=== PATIENT | female | born 1965 | race Caucasian/White ===

== ENCOUNTER 2016-03-26 04:31 | Emergency (ER) | payer MEDICAID, MEDICARE ==
[2016-03-26] MEDS ORDERED: PREDNISONE 20 MG TABLET PO ONE (07:24)
[2016-03-26] MEDS ORDERED: IPRATROPIUM/ALBUTEROL 0.5-2.5 MG/3 ML AMPUL NEB ONE (07:24)
[2016-03-26] MEDS ORDERED: OXYCODONE-ACETAMINOPHEN 5-325 MG TABLET PO ONE (07:25)
[2016-03-26] MEDS ORDERED: ONDANSETRON 4 MG TAB.RAPDIS PO ONE (07:31)
--- NOTE | 2016-03-26 07:51 | ER Document Report ---
ED Cardiac - General Chief Complaint: Chest Pain Stated Complaint: CHEST PAIN Mode of Arrival: Ambulatory Information source: Patient Notes: Patient states that she developed right-sided chest pain yesterday around 8 PM. Patient states pain would radiate through to her back. Patient denies any nausea, vomiting, fever. Patient does report increased pain with deep breathing and movement. Patient does report some cold symptoms with some sinus congestion. Patient saw her newspaper photojournalist yesterday who put her on an antibiotic to treat for possible bronchitis. Patient does complain of some mild shortness of breath. Denies any recent immobilization, bedrest or recent travel. Patient denies any leg pain, swelling, or history of DVT or PE. TRAVEL OUTSIDE OF THE [place] IN LAST 30 DAYS: No - HPI Patient complains to provider of: Chest pain, Shortness of breath Was the onset of pain: Sudden Is the pain a: New problem Chest pain location: Under breast Quality of pain: Constant, Radiating Pain level currently: 4 Chest pain precipitating factors: At Rest Cardiac risk factors: Hypertension. denies: Smoker, Hx [place] Associated symptoms: Back pain, Shortness of breath. denies: Lightheaded, Nausea/vomiting, Syncope Exacerbated by: Coughing, Deep breaths, Torso movement Relieved by: Nothing Similar symptoms previously: No Recently seen / treated by doctor: No - Related Data Allergies/Adverse Reactions: aspirin [Aspirin] Allergy (Verified 09/28/15 15:54) GI upset codeine [Codeine] Allergy (Verified 09/28/15 15:54) Hallucinations ibuprofen Allergy (Verified 09/28/15 15:54) GI upset Past Medical History - General Information source: Patient - Social History Smoking Status: Never Smoker Chew tobacco use (# tins/day): No Frequency of alcohol use: None Drug Abuse: None Occupation: none Family History: Reviewed & Not Pertinent Patient has suicidal ideation: No Patient has homicidal ideation: No - Past Medical History Cardiac Medical History: Reports: Hx Hypertension Denies: Hx Coronary Artery Disease, Hx DVT, Hx Heart Attack, Hx Pulmonary Embolism Pulmonary Medical History: Reports: Hx Asthma, Hx COPD Denies: Hx Bronchitis, Hx Pneumonia, Hx Tuberculosis Neurological Medical History: Denies: Hx Cerebrovascular Accident, Hx Seizures Endocrine Medical History: Reports: Hx Hyperthyroidism - New diagnosis and is on methimazole 10mg daily Malignancy Medical History: Reports: Hx Skin Cancer Musculoskeltal Medical History: Reports Hx Arthritis Surgical Hx: Negative Past Surgical History: Denies: Hx Hysterectomy - Immunizations Hx Diphtheria, Pertussis, Tetanus Vaccination: Yes - as a child Hx Pneumococcal Vaccination: 01/04/13 Review of Systems - Review of Systems Constitutional: Recent illness - Cold symptoms, congestion. denies: Fever EENT: Nose congestion Cardiovascular: Chest pain. denies: Palpitations Respiratory: Cough, Short of breath Gastrointestinal: No symptoms reported. denies: Abdominal pain, Nausea, Vomiting Genitourinary: No symptoms reported Female Genitourinary: No symptoms reported Musculoskeletal: Back pain - Pain radiates from chest through to her back Skin: No symptoms reported Hematologic/Lymphatic: No symptoms reported Neurological/Psychological: No symptoms reported. denies: Anxiety Physical Exam - Vital signs Vitals: Temp Pulse Resp BP Pulse Ox 98.2 F 92 20 163/89 H 98 03/26/16 04:42 03/26/16 04:42 03/26/16 04:42 03/26/16 04:42 03/26/16 04:42 - General General appearance: Appears well, Alert In distress: Mild - HEENT Head: Normocephalic, Atraumatic Eyes: Normal Conjunctiva: Normal Nasal: Normal Mouth/Lips: Normal Mucous membranes: Normal Pharynx: Normal. No: Erythema Neck: Normal, Supple. No: Lymphadenopathy - Respiratory Respiratory status: No respiratory distress Chest status: Pain with cough, Pain with deep breathing Breath sounds: Nonproductive cough, Wheezing Chest palpation: Normal - Cardiovascular Rhythm: Regular Heart sounds: S1 appreciated, S2 appreciated Murmur: No - Abdominal Inspection: Obese Distension: No distension Bowel sounds: Normal Tenderness: Nontender Organomegaly: No organomegaly - Back Back: Normal, Nontender. No: CVA tenderness - Extremities General upper extremity: Normal inspection, Normal strength General lower extremity: Normal inspection, Normal strength - Neurological Neuro grossly intact: Yes Orientation: AAOx4 Jorge Coma Scale Eye Opening: Spontaneous [place] Coma Scale Verbal: Oriented Jorge Coma Scale Motor: Obeys Commands Jorge Coma Scale Total: 15 - Psychological Associated symptoms: Normal affect, Normal mood - Skin Skin Temperature: Warm Skin Moisture: Dry Skin Color: Normal Course - Re-evaluation Re-evalutation: 03/26/16 09:45 Patient currently resting. Patient denies any chest pain until she takes a deep breath in and then reports pain is only minimal. 01/05/17 12:[address] Brewster, who recommends consultation with hospitalist. 03/26/16 12:[address] Barajas, recommends road testing to see if pt is hypoxic or tachycardic with ambulation. If patient is he will gladly admit patient; if not , recommends patient be discharged home on xarelto. Dr Barajas advised of patient's vital signs. Does not feel that patient meets inpatient criteria for admission at this time. 03/26/16 13:33 Patients pulmonary embolism severity index score is 63 placing her in the low risk category for outpatient treatment. Consulted with Dr Brewster who agrees with plan for discharge given patient's low risk stratification. - Vital Signs Vital signs: Temp Pulse Resp BP Pulse Ox 98.7 F 87 20 152/85 H 98 03/26/16 14:03 03/26/16 14:03 03/26/16 14:03 03/26/16 14:03 03/26/16 14:03 - Laboratory Result Diagrams: 03/26/16 07:55 03/26/16 07:55 Laboratory results interpreted by me: 03/26/16 03/26/16 03/26/16 07:55 07:55 07:55 Hgb 11.4 L Hct 34.7 L MCV 75 L MCH 24.9 L RDW 16.6 H D-Dimer Alkaline Phosphatase 151 H Ur Leukocyte Esterase TRACE H 03/26/16 07:55 Hgb Hct MCV MCH RDW D-Dimer 0.72 H Alkaline Phosphatase Ur Leukocyte Esterase Labs- Entire Visit 03/26/16 03/26/16 03/26/16 07:55 07:55 07:55 WBC 10.4 RBC 4.60 Hgb 11.4 L Hct 34.7 L MCV 75 L MCH 24.9 L MCHC 33.0 RDW 16.6 H Plt Count 419 Seg Neutrophils % 69.0 Lymphocytes % 19.7 Monocytes % 7.9 Eosinophils % 2.3 Basophils % 1.1 Absolute Neutrophils 7.2 Absolute Lymphocytes 2.0 Absolute Monocytes 0.8 Absolute Eosinophils 0.2 Absolute Basophils 0.1 D-Dimer Sodium 141.2 Potassium 4.9 Chloride 103 Carbon Dioxide 27 Anion Gap 11 BUN 16 Creatinine 0.96 Est GFR ( Amer) > 60 Est GFR (Non-Af Amer) > 60 Glucose 99 Calcium 9.7 Magnesium 2.2 Total Bilirubin 0.4 Direct Bilirubin 0.0 AST 19 ALT 32 Alkaline Phosphatase 151 H Creatine Kinase 66 CK-MB (CK-2) 0.47 Troponin I < 0.012 Total Protein 7.2 Albumin 4.2 Lipase 128.1 Urine Color Urine Appearance Urine pH Ur Specific [place] Urine Protein Urine Glucose (UA) Urine Ketones Urine Blood Urine Nitrite Urine Bilirubin Urine Urobilinogen Ur Leukocyte Esterase Urine WBC (Auto) Urine RBC (Auto) Squamous Epi Cells Auto Urine Mucus (Auto) Urine Ascorbic Acid 03/26/16 03/26/16 03/26/16 07:55 07:55 12:30 WBC RBC Hgb Hct MCV MCH MCHC RDW Plt Count Seg Neutrophils % Lymphocytes % Monocytes % Eosinophils % Basophils % Absolute Neutrophils Absolute Lymphocytes Absolute Monocytes Absolute Eosinophils Absolute Basophils D-Dimer 0.72 H Sodium Potassium Chloride Carbon Dioxide Anion Gap BUN Creatinine Est GFR ( Amer) Est GFR (Non-Af Amer) Glucose Calcium Magnesium Total Bilirubin Direct Bilirubin AST ALT Alkaline Phosphatase Creatine Kinase CK-MB (CK-2) Troponin I < 0.012 Total Protein Albumin Lipase Urine Color YELLOW Urine Appearance SLIGHTLY-CLOUDY Urine pH 5.0 Ur Specific [place] 1.012 Urine Protein NEGATIVE Urine Glucose (UA) NEGATIVE Urine Ketones NEGATIVE Urine Blood NEGATIVE Urine Nitrite NEGATIVE Urine Bilirubin NEGATIVE Urine Urobilinogen NEGATIVE Ur Leukocyte Esterase TRACE H Urine WBC (Auto) 3 Urine RBC (Auto) 1 Squamous Epi Cells Auto 9 Urine Mucus (Auto) RARE Urine Ascorbic Acid NEGATIVE 03/26/16 18:56 - Diagnostic Test Radiology reviewed: Reports reviewed - EKG Interpretation by Me EKG shows normal: Sinus rhythm Rate: Normal Rhythm: NSR Discharge - Discharge Clinical Impression: Pulmonary embolism and infarction Chest pain Qualifiers: Chest pain type: unspecified Qualified Code(s): R07.9 - Chest pain, unspecified COPD (chronic obstructive pulmonary disease) Qualifiers: COPD type: unspecified COPD Qualified Code(s): J44.9 - Chronic obstructive pulmonary disease, unspecified Condition: Stable Disposition: HOME, SELF-CARE Instructions: Acetaminophen, Dyspnea, Nonspecific ([facility]), Chronic Obstructive Lung Disease ([facility]) Additional Instructions: Return immediately for any new or worsening symptoms Followup with your primary care provider, call tomorrow to make a followup appointment Your CAT scan showed that you had a pulmonary embolism. You'll need to be started on a blood thinning medication. Return immediately for any new or worsening symptoms, abnormal bleeding, bruising, severe headache, head injury, worsening chest pain, worsening shortness of breath, or any concerning symptoms. Your primary doctor will determine how long you need to continue on blood thinning medications. Call them tomorrow to make a follow-up appointment. Take Tylenol [id number] as directed to help with pain Prescriptions: Albuterol Sulfate [Ventolin Hfa] 2 puff IH Q4HP PRN #17 gm PRN Reason: Prednisone [Deltasone 20 mg Tablet] 3 tab PO DAILY 4 Days Rivaroxaban [Xarelto 15 mg Tablet] 15 mg PO BID #42 tablet Referrals: ALIDA MARCUS MD [Primary Care Provider] - Follow up in 3-5 days
--- NOTE | 2016-03-26 07:57 | EKG REPORT ---
SEVERITY:- NORMAL ECG - SINUS RHYTHM : Confirmed by: Bethany Nguyen 26-Mar-2016 07:57:02
[2016-03-26 08:18] LABS: ABSOLUTE BASOPHILS # (AUTO) 0.1 10^3/uL (0.0-0.2); ABSOLUTE EOSINOPHILS # (AUTO) 0.2 10^3/uL (0.0-0.6); ABSOLUTE MONOCYTES (AUTO) 0.8 10^3/uL (0.1-1.4); ABSOLUTE NEUT (AUTO) 7.2 10^3/uL (1.7-8.2); BASOPHILS % (AUTO) 1.1 % (0-2); EOSINOPHILS % (AUTO) 2.3 % (0-6); HEMATOCRIT 34.7 % (36.0-47.0); HEMOGLOBIN 11.4 g/dL (12.0-15.5); HGB HCT DIFFERENCE -0.5; LYMPHOCYTES % (AUTO) 19.7 % (13-45); MEAN CORPUSCULAR HEMOGLOBIN 24.9 pg (27.0-33.4); MEAN CORPUSCULAR VOLUME 75 fl (80-97); MONOCYTES % (AUTO) 7.9 % (3-13); RED CELL DISTRIBUTION WIDTH 16.6 % (11.5-14.0); WHITE BLOOD COUNT 10.4 10^3/uL (4.0-10.5)
[2016-03-26 08:27] LABS: APPEARANCE,URINE SLIGHTLY-CLOUDY; BILIRUBIN,URINE NEGATIVE (NEGATIVE); GLUCOSE, URINE NEGATIVE (NEGATIVE); KETONES,URINE NEGATIVE (NEGATIVE); LEUKOCYTE ESTERASE,URINE TRACE (NEGATIVE); NITRITE,URINE NEGATIVE (NEGATIVE); PROTEIN,URINE NEGATIVE (NEGATIVE); URINE SPECIFIC GRAVITY 1.012; UROBILINOGEN,URINE NEGATIVE mg/dL (<2.0)
[2016-03-26 08:53] LABS: ALANINE AMINOTRANSFERASE 32 U/L (9-52); ALBUMIN 4.2 g/dL (3.5-5.0); ALKALINE PHOSPHATASE 151 U/L (38-126); ANION GAP 11 (5-19); ASPARTATE AMINO TRANSFERASE 19 U/L (14-36); BILIRUBIN,TOTAL 0.4 mg/dL (0.2-1.3); BLOOD UREA NITROGEN 16 mg/dL (7-20); CALCIUM 9.7 mg/dL (8.4-10.2); CARBON DIOXIDE 27 mmol/L (22-30); CHLORIDE 103 mmol/L (98-107); CREATINE KINASE 66 U/L (30-135); CREATININE RESULT 0.96 mg/dL (0.52-1.25); GLUCOSE 99 mg/dL (75-110); LIPASE 128.1 U/L (23-300); MAGNESIUM 2.2 mg/dL (1.6-2.3); POTASSIUM 4.9 mmol/L (3.6-5.0); SODIUM 141.2 mmol/L (137-145); TOTAL PROTEIN 7.2 g/dL (6.3-8.2)
[2016-03-26 09:05] LABS: CREATINE KINASE MB 0.47 ng/mL (<4.55)
[2016-03-26 09:07] LABS: TROPONIN I < 0.012 ng/mL
[2016-03-26] MEDS ORDERED: RIVAROXABAN 15 MG TABLET PO ONE (13:50)
[2016-03-26 14:04] VITALS: BP 152/85
== END 2016-03-26 14:03 | disposition home or self-care (01) ==
LOC: ER 04:31
DX: I26.99 Other pulmonary embolism without acute cor pulmonale (principal); R07.9 Chest pain, unspecified; J44.9 Chronic obstructive pulmonary disease, unspecified; M54.9 Dorsalgia, unspecified; R06.02 Shortness of breath
CPT/HCPCS: 93005; 94640; 99285; 36415; 82553; 82550; 83690; 83735; 85025; 80053; 81001; 84484; 85379; 71020; 71275; 93010; A9270 ×4; J7512; J7620; S0119

== ENCOUNTER 2017-03-16 10:18 | Emergency (ER) | payer MEDICARE ==
--- NOTE | 2017-03-16 10:35 | ER Document Report ---
HPI - HPI Patient complains to provider of: Worsening COPD Onset: Yesterday Onset/Duration: Gradual, Persistent Pain Level: 3 Context: 52-year-old female complaining of worsening cough and congestion with her COPD. Ex-smoker. No fever or chills. No chest pain. No daily prednisone. She has Advair and Ventolin that she uses regularly. No nebulizer at home. Associated Symptoms: None Exacerbated by: Denies Relieved by: Denies Similar symptoms previously: Yes Recently seen / treated by doctor: No - ROS ROS below otherwise negative: Yes Systems Reviewed and Negative: Yes All other systems reviewed and negative - REPRODUCTIVE Reproductive: DENIES: : Past Medical History - General Information source: Patient - Social History Smoking Status: Former Smoker Frequency of alcohol use: None Drug Abuse: None Lives with: Spouse/Significant other Family History: Reviewed & Not Pertinent - Past Medical History Cardiac Medical History: Reports: Hx Hypertension Pulmonary Medical History: Reports: Hx Asthma, Hx COPD Endocrine Medical History: Reports: Hx Hyperthyroidism - New diagnosis and is on methimazole 10mg daily Malignancy Medical History: Reports: Hx Skin Cancer Musculoskeltal Medical History: Reports Hx Arthritis - Immunizations Hx Diphtheria, Pertussis, Tetanus Vaccination: Yes - as a child Hx Pneumococcal Vaccination: 01/04/13 Vertical Provider Document - CONSTITUTIONAL Agree With Documented VS: Yes Exam Limitations: No Limitations General Appearance: No Apparent Distress - INFECTION CONTROL TRAVEL OUTSIDE OF THE [place] IN LAST 30 DAYS: No - HEENT HEENT: Normal ENT Exam - NECK Neck: Supple. negative: Lymphadenopathy-Left, Lymphadenopathy-Right - RESPIRATORY Respiratory: No Respiratory Distress, Wheezing - exp scattered O2 Sat by Pulse Oximetry: 95 - CARDIOVASCULAR Cardiovascular: Regular Rate, Regular Rhythm - GI/ABDOMEN Gastrointestinal: Abdomen Soft, Abdomen Non-Tender - MUSCULOSKELETAL/EXTREMETIES Musculoskeletal/Extremeties: LIS KESSLER - NEURO Level of Consciousness: Awake, Alert - DERM Integumentary: Warm, Dry Course - Re-evaluation Re-evalutation: 03/16/17 12:52 feels better after the nebulizer, has plenty of nebules at home, and albuterol MDI, and the prednisone prescription (enought pills of the 10mg for 60-50-40- etc.) even thought the cxr is negative, with COPD chronic, will cover with antibiotics since sick for 1 week. She understands reason to return to ER and f/ u her provider in [place]. - Vital Signs Vital signs: Temp Pulse Resp BP Pulse Ox 98.2 F 87 24 H 153/93 H 95 03/16/17 10:29 03/16/17 10:29 03/16/17 10:29 03/16/17 10:29 03/16/17 10:29 Discharge - Discharge Clinical Impression: COPD exacerbation Condition: Good Disposition: HOME, SELF-CARE Unit Admitted: IMCU Instructions: Bronchitis With Bronchospasm (Wheezing) ([facility]), Chronic Obstructive Lung Disease ([facility]), Inhaled Bronchodilators ([facility]), Steroid Medication Additional Instructions: to er if worse take the prednisone 10mg, 6 by mouth tomorrow and decrease by 1 per day until gone axithromycin as antibiotic use the nebulizer every 3 hours as needed for the cough and wheeZe Prescriptions: Azithromycin [Zithromax] 250 mg PO DAILY #6 tablet Referrals: SANA LORA, BUSINESS INTEGRATION ANALYST [NO LOCAL MD] - Follow up as needed
[2017-03-16] MEDS ORDERED: PREDNISONE 20 MG TABLET PO ONE (10:43)
[2017-03-16] MEDS ORDERED: IPRATROPIUM/ALBUTEROL 0.5-2.5 MG/3 ML AMPUL NEB ONE (10:43)
[2017-03-16] MEDS ORDERED: ALBUTEROL SULFATE 0.083% NEB 2.5 MG/3 ML AMPUL NEB ONE (10:43)
[2017-03-16] MEDS ORDERED: ONDANSETRON 4 MG TAB.RAPDIS PO ONE (11:04)
--- NOTE | 2017-03-16 12:15 | RADIOLOGY REPORT (SQ) ---
EXAM DESCRIPTION: CHEST PA/LAT COMPLETED DATE/TIME: 03/16/2017 12:05 pm REASON FOR STUDY: worse copd COMPARISON: 03/26/2016 EXAM PARAMETERS: NUMBER OF VIEWS: two views TECHNIQUE: Digital Frontal and Lateral radiographic views of the chest acquired. RADIATION DOSE: NA LIMITATIONS: none FINDINGS: LUNGS AND PLEURA: No opacities, masses or pneumothorax. No pleural effusion. MEDIASTINUM AND HILAR STRUCTURES: No masses or contour abnormalities. HEART AND VASCULAR STRUCTURES: Heart normal size. No evidence for failure. BONES: No acute findings. Minimal thoracic spondylosis. HARDWARE: None in the chest. OTHER: No other significant finding. IMPRESSION: NO SIGNIFICANT RADIOGRAPHIC FINDING IN THE CHEST. TECHNICAL DOCUMENTATION: JOB ID: [id number] [employer]- All Rights Reserved
[2017-03-16 13:00] VITALS: BP 134/76
== END 2017-03-16 13:02 | disposition home or self-care (01) ==
LOC: ER 10:18
DX: J44.1 Chronic obstructive pulmonary disease with (acute) exacerbation (principal); R05 Cough; R09.81 Nasal congestion; Z87.891 Personal history of nicotine dependence
CPT/HCPCS: 94640 ×2; 99285; 71020; A9270 ×4; J7512; J7620; S0119

== ENCOUNTER 2017-08-20 12:04 | Emergency (ER) | payer MEDICARE ==
[2017-08-20 12:11] VITALS: BP 144/87
[2017-08-20] MEDS ORDERED: HYDROCODONE/ACETAMINOPHEN 5-325 MG TABLET PO ONE (12:40)
--- NOTE | 2017-08-20 12:41 | ER Document Report ---
HPI - HPI Patient complains to provider of: Low back pain Onset: Other - 2 days Onset/Duration: Worse Quality of pain: Achy Pain Level: 4 Context: Patient complains of chronic low back pain. Patient states she has had left lower back pain for the past 2 days which is different from her usual chronic back pain. Patient does report urinary frequency but denies any retention or incontinence. Patient denies any fever. Patient denies any back injury. Associated Symptoms: Nausea, Other - Low back pain. denies: Fever, Vomiting Exacerbated by: Movement Relieved by: Denies Similar symptoms previously: No Recently seen / treated by doctor: No - ROS ROS below otherwise negative: Yes Systems Reviewed and Negative: Yes All other systems reviewed and negative - CONSTITUTIONAL Constitutional: DENIES: Fever, Chills - NEURO Neurology: DENIES: Headache, Weakness - GASTROINTESTINAL Gastrointestinal: REPORTS: Nausea. DENIES: Patient vomiting - URINARY Urinary: REPORTS: Frequency. DENIES: Dysuria, Urgency - REPRODUCTIVE Reproductive: DENIES: : - MUSCULOSKELETAL Musculoskeletal: REPORTS: Back Pain. DENIES: Extremity pain, Neck Pain - DERM Skin Color: Normal Skin Problems: None Past Medical History - General Information source: Patient - Social History Smoking Status: Never Smoker Frequency of alcohol use: None Drug Abuse: None Occupation: None Lives with: Family Family History: Reviewed & Not Pertinent - Past Medical History Cardiac Medical History: Reports: Hx Hypertension Denies: Hx Coronary Artery Disease, Hx DVT, Hx Heart Attack, Hx Pulmonary Embolism Pulmonary Medical History: Reports: Hx Asthma, Hx COPD Denies: Hx Bronchitis, Hx Pneumonia, Hx Tuberculosis Neurological Medical History: Denies: Hx Cerebrovascular Accident, Hx Seizures Endocrine Medical History: Reports: Hx Hyperthyroidism - New diagnosis and is on methimazole 10mg daily Renal/ Medical History: Denies: Hx Peritoneal Dialysis Malignancy Medical History: Reports: Hx Skin Cancer Musculoskeltal Medical History: Reports Hx Arthritis Past Surgical History: Reports: Other - Skin cancer. Denies: Hx Hysterectomy - Immunizations Hx Diphtheria, Pertussis, Tetanus Vaccination: Yes - as a child Hx Pneumococcal Vaccination: 01/04/13 Vertical Provider Document - CONSTITUTIONAL Agree With Documented VS: Yes Exam Limitations: No Limitations General Appearance: WD/WN, No Apparent Distress Notes: PHYSICAL EXAMINATION: GENERAL: Well-appearing, well-nourished and in no acute distress. HEAD: Atraumatic, normocephalic. EYES: sclera clear, anicteric, conjunctiva are normal. ENT: nares patent, Moist mucous membranes. NECK: Normal range of motion, supple LUNGS: respirations unlabored HEART: Regular rate and rhythm without murmurs EXTREMITIES: Normal range of motion, no pitting or edema. No cyanosis. Gait normal, pt ambulates without difficulty BACK: Left lower lumbar paraspinal tenderness, no midline tenderness, no deformities or step-offs. No CVA tenderness. NEUROLOGICAL: Cranial nerves grossly intact. Normal speech, normal gait. No saddle anesthesia. No foot drop PSYCH: Normal mood, normal affect. SKIN: Warm, Dry, normal turgor, no rashes or lesions noted. - INFECTION CONTROL TRAVEL OUTSIDE OF THE [place] IN LAST 30 DAYS: No Course - Re-evaluation Re-evalutation: 08/20/17 13:42 The patient presents with low back pain without signs of spinal cord compression , cauda equina syndrome, infection, aneurysm, or other serious etiology. The patient is neurologically intact. Given the extremely risk of these diagnoses further testing and evaluation for these possibilities does not appear to be indicated at this time. Patient has been instructed to return if the symptoms worsen or change in any way. - Vital Signs Vital signs: Temp Pulse Resp BP Pulse Ox 98.1 F 82 20 144/87 H 99 08/20/17 12:09 08/20/17 12:09 08/20/17 12:09 08/20/17 12:09 08/20/17 12:09 - Diagnostic Test Radiology reviewed: Reports reviewed Discharge - Discharge Clinical Impression: Low back pain Qualifiers: Chronicity: acute Back pain laterality: left Sciatica presence: with sciatica Sciatica laterality: sciatica of left side Qualified Code(s): M54.42 - Lumbago with sciatica, left side Condition: Stable Disposition: HOME, SELF-CARE Instructions: Ice Packs ([facility]), Low Back Pain ([facility]), Oral Narcotic Medication ( [facility]) Additional Instructions: Return immediately for any new or worsening symptoms Followup with your primary care provider, call tomorrow to make a followup appointment Prescriptions: Hydrocodone/Acetaminophen [[place] 5-325 Tablet] 1 each PO Q4 PRN #15 tablet PRN Reason: Referrals: SANA LORA NP [Primary Care Provider] - 08/23/17
[2017-08-20 13:24] LABS: APPEARANCE,URINE CLEAR; BILIRUBIN,URINE NEGATIVE (NEGATIVE); COLOR,URINE YELLOW; GLUCOSE, URINE NEGATIVE (NEGATIVE); KETONES,URINE NEGATIVE (NEGATIVE); LEUKOCYTE ESTERASE,URINE NEGATIVE (NEGATIVE); NITRITE,URINE NEGATIVE (NEGATIVE); PROTEIN,URINE NEGATIVE (NEGATIVE); URINE SPECIFIC GRAVITY 1.014; UROBILINOGEN,URINE NEGATIVE mg/dL (<2.0)
--- NOTE | 2017-08-20 13:36 | RADIOLOGY REPORT (SQ) ---
EXAM DESCRIPTION: L SPINE WHOLE COMPLETED DATE/TIME: 08/20/2017 1:16 pm REASON FOR STUDY: low back pain COMPARISON: None. NUMBER OF VIEWS: Five views including obliques. TECHNIQUE: AP, lateral, oblique, and sacral radiographic images acquired of the lumbar spine. LIMITATIONS: None. FINDINGS: MINERALIZATION: Normal. SEGMENTATION: Normal. No transitional anatomy. ALIGNMENT: Normal. VERTEBRAE: Maintained height. No fracture or worrisome bone lesion. DISCS: There is mild narrowing of all the lumbar disc spaces. Small marginal osteophytes are present several levels. POSTERIOR ELEMENTS: Pedicles and facets are intact. No pars defect or posterior arch defects. HARDWARE: None in the spine. PARASPINAL SOFT TISSUES: Normal. PELVIS: Intact as visualized. No fractures or worrisome bone lesions. SI joints intact. OTHER: No other significant finding. IMPRESSION: Mild degenerative disc changes and spondylosis. TECHNICAL DOCUMENTATION: JOB ID: [id number] [employer]- All Rights Reserved Reading location - IP/workstation name: [email or web address]
[2017-08-20] MEDS ORDERED: LIDOCAINE 5% (700 MG) TRANSDERMAL ADH..PATCH TP ONE (13:44)
== END 2017-08-20 14:09 | disposition home or self-care (01) ==
LOC: ER 12:04
DX: M54.42 Lumbago with sciatica, left side (principal); G89.29 Other chronic pain; R11.0 Nausea; R35.0 Frequency of micturition; I10 Essential (primary) hypertension; J44.9 Chronic obstructive pulmonary disease, unspecified
CPT/HCPCS: 99283; 81001; 72110; A9270

== ENCOUNTER 2017-09-30 09:50 | Emergency (ER) | payer MEDICARE ==
--- NOTE | 2017-09-30 10:16 | ER Document Report ---
ED Medical Screen (RME) - General Chief Complaint: Chest Pain Stated Complaint: CHEST PAIN Time Seen by Provider: 09/30/17 10:08 Mode of Arrival: Ambulatory Information source: Patient TRAVEL OUTSIDE OF THE [place] IN LAST 30 DAYS: No - HPI Notes: 09/30/17 10:14 I have greeted and performed a rapid initial assessment of this patient. A comprehensive ED assessment and evaluation of the patient, analysis of test results and completion of the medical decision making process will be conducted by additional ED providers. 52-year-old female presents emergency department with complaints of a two-week history of sharp and stabbing left-sided chest pain as well as shortness of breath. Patient states that the pain is intermittent in nature. She denies any alleviating or exacerbating factors. She states that the pain radiates to the back. She has had pain similar to this a year ago when she was diagnosed with a pulmonary embolism. Patient was started on Xarelto at that time. Patient states that she was on the Xarelto for 3 months and then gradually tapered off of it. Patient also has a history of COPD. Has had associated rhinorrhea and cough. PHYSICAL EXAMINATION: GENERAL: Well-appearing, well-nourished and in no acute distress. HEAD: Atraumatic, normocephalic. EYES: Pupils equal round extraocular movements intact, conjunctiva are normal. ENT: Nares patent NECK: Normal range of motion LUNGS: No respiratory distress Musculoskeletal: Normal range of motion NEUROLOGICAL: Normal speech, normal gait. PSYCH: Normal mood, normal affect. SKIN: Warm, Dry, normal turgor, no rashes or lesions noted. - Related Data Allergies/Adverse Reactions: aspirin [Aspirin] Allergy (Verified 09/30/17 09:53) GI upset codeine [Codeine] Allergy (Verified 09/30/17 09:53) Hallucinations ibuprofen Allergy (Verified 09/30/17 09:53) GI upset Past Medical History - Past Medical History Cardiac Medical History: Reports: Hx Hypertension Denies: Hx Coronary Artery Disease, Hx DVT, Hx Heart Attack, Hx Pulmonary Embolism Pulmonary Medical History: Reports: Hx Asthma, Hx COPD Denies: Hx Bronchitis, Hx Pneumonia, Hx Tuberculosis Neurological Medical History: Denies: Hx Cerebrovascular Accident, Hx Seizures Endocrine Medical History: Reports: Hx Hyperthyroidism - New diagnosis and is on methimazole 10mg daily Renal/ Medical History: Denies: Hx Peritoneal Dialysis Malignancy Medical History: Reports: Hx Skin Cancer Musculoskeltal Medical History: Reports Hx Arthritis Past Surgical History: Reports: Other - Skin cancer. Denies: Hx Hysterectomy - Immunizations Hx Diphtheria, Pertussis, Tetanus Vaccination: Yes - as a child Physical Exam - Vital signs Vitals: Temp Pulse Resp BP Pulse Ox 98.0 F 76 16 162/93 H 98 09/30/17 10:07 09/30/17 10:07 09/30/17 10:07 09/30/17 10:07 09/30/17 10:07 Course - Vital Signs Vital signs: Temp Pulse Resp BP Pulse Ox 98.0 F 76 16 162/93 H 98 09/30/17 10:07 09/30/17 10:07 09/30/17 10:07 09/30/17 10:07 09/30/17 10:07 Doctor's Discharge - Discharge Referrals: SANA LORA, CLINICAL MASSAGE THERAPIST [Primary Care Provider] - Follow up as needed
[2017-09-30 10:40] LABS: ABSOLUTE BASOPHILS # (AUTO) 0.2 10^3/uL (0.0-0.2); ABSOLUTE EOSINOPHILS # (AUTO) 0.4 10^3/uL (0.0-0.6); ABSOLUTE LYMPHOCYTES (AUTO) 2.3 10^3/uL (0.5-4.7); ABSOLUTE MONOCYTES (AUTO) 0.7 10^3/uL (0.1-1.4); ABSOLUTE NEUT (AUTO) 6.8 10^3/uL (1.7-8.2); BASOPHILS % (AUTO) 1.5 % (0-2); EOSINOPHILS % (AUTO) 4.3 % (0-6); HEMATOCRIT 36.1 % (36.0-47.0); HEMOGLOBIN 11.9 g/dL (12.0-15.5); LYMPHOCYTES % (AUTO) 22.3 % (13-45); MEAN CORPUSCULAR HEMOGLOBIN 24.9 pg (27.0-33.4); MEAN CORPUSCULAR HGB CONC 32.9 g/dL (32.0-36.0); MEAN CORPUSCULAR VOLUME 76 fl (80-97); MONOCYTES % (AUTO) 6.9 % (3-13); PLATELET COUNT 421 10^3/uL (150-450); RED BLOOD COUNT 4.77 10^6/uL (3.72-5.28); RED CELL DISTRIBUTION WIDTH 17.7 % (11.5-14.0); TOTAL CELLS COUNTED % (AUTO) 100 %; WHITE BLOOD COUNT 10.4 10^3/uL (4.0-10.5)
--- NOTE | 2017-09-30 10:47 | ER Document Report ---
ED General - General Chief Complaint: Chest Pain Stated Complaint: CHEST PAIN Time Seen by Provider: 09/30/17 10:08 Mode of Arrival: Ambulatory TRAVEL OUTSIDE OF THE [place] IN LAST 30 DAYS: No - HPI Patient complains to provider of: SOB Notes: Morbidly obese 52-year-old female presents with increasing shortness of breath for last week. This is been associated with a very sharp left-sided chest pain 8/10 radiation into her body. Nothing is made it better or worse. Patient states it is reminiscent of her previous pulmonary embolus. Patient denies fever chills or cough. Patient does have history of asthma and COPD but states this feels differently. Patient denies any trauma to her chest states it is non-reproducible with pressure in the left chest but "inside". Patient had previously been on Eliquis but has not been on it for several months. Denies unilateral leg swelling recently, trauma, travel. - Related Data Allergies/Adverse Reactions: aspirin [Aspirin] Allergy (Verified 09/30/17 09:53) GI upset codeine [Codeine] Allergy (Verified 09/30/17 09:53) Hallucinations ibuprofen Allergy (Verified 09/30/17 09:53) GI upset Past Medical History - General Information source: Patient - Social History Smoking Status: Former Smoker Chew tobacco use (# tins/day): No Frequency of alcohol use: None Drug Abuse: None Family History: Reviewed & Not Pertinent Patient has suicidal ideation: No Patient has homicidal ideation: No - Past Medical History Cardiac Medical History: Reports: Hx Hypertension Denies: Hx Coronary Artery Disease, Hx DVT, Hx Heart Attack, Hx Pulmonary Embolism Pulmonary Medical History: Reports: Hx Asthma, Hx COPD Denies: Hx Bronchitis, Hx Pneumonia, Hx Tuberculosis Neurological Medical History: Denies: Hx Cerebrovascular Accident, Hx Seizures Endocrine Medical History: Reports: Hx Hyperthyroidism - New diagnosis and is on methimazole 10mg daily Renal/ Medical History: Denies: Hx Peritoneal Dialysis Malignancy Medical History: Reports: Hx Skin Cancer Musculoskeletal Medical History: Reports Hx Arthritis Past Surgical History: Reports: Other - Skin cancer. Denies: Hx Hysterectomy - Immunizations Hx Diphtheria, Pertussis, Tetanus Vaccination: Yes - as a child Hx Pneumococcal Vaccination: 01/04/13 Review of Systems - Review of Systems Notes: REVIEW OF SYSTEMS: CONSTITUTIONAL: -fevers, -chills EENT: -eye pain, -difficulty swallowing, -nasal congestion CARDIOVASCULAR: +chest pain, -syncope. RESPIRATORY: -cough, + SOB GASTROINTESTINAL: -abdominal pain, -nausea, -vomiting, -diarrhea GENITOURINARY: -dysuria, -hematuria MUSCULOSKELETAL: -back pain, -neck pain SKIN: -rash or skin lesions. HEMATOLOGIC: -easy bruising or bleeding. LYMPHATIC: -swollen, enlarged glands. NEUROLOGICAL: -altered mental status or loss of consciousness, -headache, - neurologic symptoms PSYCHIATRIC: -anxiety, -depression. ALL OTHER SYSTEMS REVIEWED AND NEGATIVE. Physical Exam - Vital signs Vitals: Temp Pulse Resp BP Pulse Ox 98.0 F 76 16 162/93 H 98 09/30/17 10:09/30/17 10:09/30/17 10:09/30/17 10:09/30/17 10:07 - Notes Notes: PHYSICAL EXAMINATION: GENERAL: Well-appearing, well-nourished and in no acute distress. HEAD: Atraumatic, normocephalic. EYES: Pupils equal round and reactive to light, extraocular movements intact, sclera anicteric, conjunctiva are normal. ENT: nares patent, oropharynx clear without exudates. Moist mucous membranes. NECK: Normal range of motion, supple without lymphadenopathy LUNGS: Breath sounds clear to auscultation bilaterally and equal. No wheezes rales or rhonchi. HEART: Regular rate and rhythm without murmurs ABDOMEN: Soft, nontender, normoactive bowel sounds. No guarding, no rebound. No masses appreciated. EXTREMITIES: Normal range of motion, no pitting or edema. No cyanosis. NEUROLOGICAL: Cranial nerves grossly intact. Normal speech, normal gait. Normal sensory and motor exams. PSYCH: Normal mood, normal affect. SKIN: Warm, Dry, normal turgor, no rashes or lesions noted. Course - Re-evaluation Re-evalutation: 09/30/17 12:48 Pleasant female presents with 2 days of sharp left-sided chest pain. Patient concerned she has another pulmonary embolus. Patient's EKG is no ischemic changes or right heart strain. Patient's preserved kidney function negative leukocytosis. Patient's troponin negative for cardiac abnormality. Patient is CTA of her chest performed to rule out pulmonary embolus or other acute process. High suspicion patient has costochondritis or another musculoskeletal pain. Patient will follow-up outpatient with her PCP and cardiology. Given strict return precautions - Vital Signs Vital signs: Temp Pulse Resp BP Pulse Ox 98.0 F 76 14 146/102 H 99 09/30/17 10:07 09/30/17 10:07 09/30/17 11:49 09/30/17 11:50 09/30/17 11:49 - Laboratory Result Diagrams: 09/30/17 10:25 09/30/17 10:25 Laboratory results interpreted by me: 09/30/17 09/30/17 10:25 10:25 Hgb 11.9 L MCV 76 L MCH 24.9 L RDW 17.7 H Alkaline Phosphatase 151 H Discharge - Discharge Clinical Impression: Chest pain Qualifiers: Chest pain type: unspecified Qualified Code(s): R07.9 - Chest pain, unspecified Condition: Stable Disposition: HOME, SELF-CARE Instructions: Chest Wall Pain ([facility]) Additional Instructions: See your PCP and psychiatry resident Referrals: SANA LORA, TILE AND MOTTLE SUPERVISOR [Primary Care Provider] - Follow up as needed
--- NOTE | 2017-09-30 11:01 | RADIOLOGY REPORT (SQ) ---
EXAM DESCRIPTION: CHEST SINGLE VIEW COMPLETED DATE/TIME: 09/30/2017 10:39 am REASON FOR STUDY: chest pain COMPARISON: 03/16/2017 EXAM PARAMETERS: NUMBER OF VIEWS: One view. TECHNIQUE: Single frontal radiographic view of the chest acquired. RADIATION DOSE: NA LIMITATIONS: None. FINDINGS: LUNGS AND PLEURA: No opacities, masses or pneumothorax. No pleural effusion. MEDIASTINUM AND HILAR STRUCTURES: No masses. Contour normal. HEART AND VASCULAR STRUCTURES: Heart normal in size. Normal vasculature. BONES: No acute findings. HARDWARE: None in the chest. OTHER: No other significant finding. IMPRESSION: NO ACUTE RADIOGRAPHIC FINDING IN THE CHEST. TECHNICAL DOCUMENTATION: JOB ID: [id number] [email or web address]- All Rights Reserved Reading location - IP/workstation name: [email or web address]
[2017-09-30 11:06] LABS: ALANINE AMINOTRANSFERASE 32 U/L (9-52); ALKALINE PHOSPHATASE 151 U/L (38-126); ANION GAP 11 (5-19); ASPARTATE AMINO TRANSFERASE 21 U/L (14-36); BILIRUBIN,DIRECT 0.4 mg/dL (0.0-0.4); BILIRUBIN,TOTAL 0.4 mg/dL (0.2-1.3); BLOOD UREA NITROGEN 15 mg/dL (7-20); CALCIUM 9.2 mg/dL (8.4-10.2); CARBON DIOXIDE 28 mmol/L (22-30); CHLORIDE 105 mmol/L (98-107); CREATINE KINASE 87 U/L (30-135); GLUCOSE 100 mg/dL (75-110); POTASSIUM 4.7 mmol/L (3.6-5.0); SODIUM 143.9 mmol/L (137-145); TOTAL PROTEIN 7.1 g/dL (6.3-8.2)
[2017-09-30 11:18] LABS: CREATINE KINASE MB 0.86 ng/mL (<4.55)
[2017-09-30 11:22] LABS: TROPONIN I < 0.012 ng/mL
--- NOTE | 2017-09-30 12:36 | RADIOLOGY REPORT (SQ) ---
EXAM DESCRIPTION: CTA CHEST COMPLETED DATE/TIME: 09/30/2017 12:06 pm REASON FOR STUDY: PE? COMPARISON: Chest x-ray dated 09/30/2017 TECHNIQUE: CT scan of the chest performed using helical scanning technique with dynamic intravenous contrast injection. Images reviewed with lung, soft tissue and bone windows. Reconstructed coronal and sagittal MPR images reviewed. Additional 3 dimensional post-processing performed to develop Maximal Intensity Projection images ([place] P). All images stored on PACS. All CT scanners at this facility use dose modulation, iterative reconstruction, and/or weight based d osing when appropriate to reduce radiation dose to as low as reasonably achievable (ALARA). [facility]: Dose Right [facility]: CareDose [facility]: Dose Right [facility]: Teradose 4D [facility]: Booster CONTRAST TYPE AND DOSE: contrast/concentration: Isovue 370.00 mg/ml; Total Contrast Delivered: 83.0 ml; Total Saline Delivered: 71.7 ml Contrast bolus optimized for the pulmonary arteries. Not diagnostic for the aorta. RENAL FUNCTION: Creatinine 0.9 RADIATION DOSE: CT Rad equipment meets quality standard of care and radiation dose reduction techniq ues were employed. CTDIvol: 26.4 - 48.1 mGy. DLP: 1801 mGy-cm. . LIMITATIONS: None. FINDINGS: LUNGS AND PLEURA: No masses, infiltrates, or pneumothorax. No pleural effusions or pleura l calcifications. AORTA AND GREAT VESSELS: No aneurysm. Contrast bolus not optimized for the aorta. HEART: No pericardial effusion. No significant coronary artery calcifications. PULMONARY ARTERIES: No emboli visualized in the main pulmonary arteries or the segmental branches. HILAR AND MEDIASTINAL STRUCTURES: No identified masses or abnormal nodes. HARDWARE: None in the chest. UPPER ABDOMEN: No significant findings. Limited exam. THYROID AND OTHER SOFT TISSUES: No masses. No adenopathy. BONES: No acute or significant finding. 3D MIPS: Confirm above findings. OTHER: No other significant finding. IMPRESSION: NORMAL CTA OF THE CHEST. NO PULMONARY EMBOLI. COMMENT: Quality ID # [id number]: Final reports with documentation of one or more dose reduction techniques (e.g., Automated exposure control, adjustment of the mA and/or kV according to patient size, use of iterative reconstruction technique) TECHNICAL DOCUMENTATION: JOB ID: [id number] [employer]- All Rights Reserved Reading location - IP/workstation name: [email or web address]
[2017-09-30 12:59] VITALS: BP 140/78
--- NOTE | 2017-09-30 20:37 | EKG REPORT ---
SEVERITY:- NORMAL ECG - SINUS RHYTHM : Confirmed by: Yany Hinton MD 30-Sep-2017 20:36:45
== END 2017-09-30 13:03 | disposition home or self-care (01) ==
LOC: ER 09:50
DX: R07.89 Other chest pain (principal); J44.9 Chronic obstructive pulmonary disease, unspecified; R06.02 Shortness of breath; I10 Essential (primary) hypertension; Z86.711 Personal history of pulmonary embolism; Z88.6 Allergy status to analgesic agent; Z88.5 Allergy status to narcotic agent; Z87.891 Personal history of nicotine dependence; Z85.828 Personal history of other malignant neoplasm of skin
CPT/HCPCS: 36415; 71045; 71275; 80053; 82550; 82553; 84484; 85025; 85379; 93005; 93010; 99285

== ENCOUNTER 2018-01-09 19:16 | Emergency (ER) | payer MEDICARE ==
[2018-01-09 19:30] VITALS: BP 156/71
[2018-01-09] MEDS ORDERED: ASPIRIN 81 MG TABLET, CHEWABLE PO ONE (19:40)
[2018-01-09] MEDS ORDERED: IPRATROPIUM/ALBUTEROL 0.5-2.5 MG/3 ML AMPUL NEB ONE ×2 (19:40→20:44)
[2018-01-09] MEDS ORDERED: PREDNISONE 20 MG TABLET PO ONE (19:41)
--- NOTE | 2018-01-09 19:41 | ER Document Report ---
ED Medical Screen (RME) - General Chief Complaint: Shortness Of Breath Stated Complaint: SHORTNESS OF BREATH Time Seen by Provider: 01/09/18 19:32 TRAVEL OUTSIDE OF THE [place] IN LAST 30 DAYS: No - HPI Patient complains to provider of: Short of breath Onset: Other - 52-year-old female with a history of COPD who presents for evaluation of shortness of breath as well as chest tightness which is been developing over the last couple of days, she has not had any loss of consciousness but has noted that it seems to be worsening and now her throat seems tighter than it had been in the past. She has felt like this once in the past at which time it felt much worse and her chest pain was worse but it was attributed to her COPD and a lung infection at that time. - Related Data Allergies/Adverse Reactions: aspirin [Aspirin] Allergy (Verified 09/30/17 09:53) GI upset codeine [Codeine] Allergy (Verified 09/30/17 09:53) Hallucinations ibuprofen Allergy (Verified 09/30/17 09:53) GI upset Past Medical History - Past Medical History Cardiac Medical History: Reports: Hx Hypertension Denies: Hx Coronary Artery Disease, Hx DVT, Hx Heart Attack, Hx Pulmonary Embolism Pulmonary Medical History: Reports: Hx Asthma, Hx COPD Denies: Hx Bronchitis, Hx Pneumonia, Hx Tuberculosis Neurological Medical History: Denies: Hx Cerebrovascular Accident, Hx Seizures Endocrine Medical History: Reports: Hx Hyperthyroidism - New diagnosis and is on methimazole 10mg daily Renal/ Medical History: Denies: Hx Peritoneal Dialysis Malignancy Medical History: Reports: Hx Skin Cancer Musculoskeltal Medical History: Reports Hx Arthritis Past Surgical History: Reports: Other - Skin cancer. Denies: Hx Hysterectomy - Immunizations Hx Diphtheria, Pertussis, Tetanus Vaccination: Yes - as a child Physical Exam - Vital signs Vitals: Temp Pulse Resp BP Pulse Ox 98.2 F 80 20 156/71 H 98 01/09/18 19:28 01/09/18 19:28 01/09/18 19:28 01/09/18 19:28 01/09/18 19:28 Course - Re-evaluation Re-evalutation: 01/09/18 21:04 52-year-old female with a history of COPD who presents with shortness of breath productive cough and some tightness. I seen and performed a rapid medical screening examination on this patient, orders have been placed in this patient will require further investigation and evaluation by secondary provider for disposition determination. - Vital Signs Vital signs: Temp Pulse Resp BP Pulse Ox 98.2 F 80 20 156/71 H 98 01/09/18 19:28 01/09/18 19:28 01/09/18 19:28 01/09/18 19:28 01/09/18 20:09 - Laboratory Result Diagrams: 01/09/18 19:55 01/09/18 19:55 Laboratory results interpreted by me: 01/09/18 01/09/18 19:55 19:55 Hgb 11.9 L MCV 76 L MCH 24.8 L RDW 18.0 H Basophils % (Manual) 4 H Abs Basophils (Manual) 0.4 H Est GFR (Non-Af Amer) 58 L Alkaline Phosphatase 160 H Doctor's Discharge - Discharge Referrals: SANA LORA, DYEHOUSE WORKER [Primary Care Provider] - Follow up as needed
[2018-01-09 20:14] LABS: HEMATOCRIT 36.4 % (36.0-47.0); HEMOGLOBIN 11.9 g/dL (12.0-15.5); MEAN CORPUSCULAR HEMOGLOBIN 24.8 pg (27.0-33.4); MEAN CORPUSCULAR HGB CONC 32.7 g/dL (32.0-36.0); MEAN CORPUSCULAR VOLUME 76 fl (80-97); PLATELET COUNT 407 10^3/uL (150-450); RED BLOOD COUNT 4.79 10^6/uL (3.72-5.28); WHITE BLOOD COUNT 8.9 10^3/uL (4.0-10.5)
[2018-01-09 20:25] LABS: ALANINE AMINOTRANSFERASE 24 U/L (9-52); ALBUMIN 3.8 g/dL (3.5-5.0); ALKALINE PHOSPHATASE 160 U/L (38-126); ANION GAP 10 (5-19); ASPARTATE AMINO TRANSFERASE 22 U/L (14-36); BILIRUBIN,DIRECT 0.2 mg/dL (0.0-0.4); BILIRUBIN,TOTAL 0.3 mg/dL (0.2-1.3); BLOOD UREA NITROGEN 12 mg/dL (7-20); CARBON DIOXIDE 27 mmol/L (22-30); CHLORIDE 102 mmol/L (98-107); CREATINE KINASE 86 U/L (30-135); GLUCOSE 98 mg/dL (75-110); POTASSIUM 4.7 mmol/L (3.6-5.0); SODIUM 138.7 mmol/L (137-145); TOTAL PROTEIN 7.1 g/dL (6.3-8.2)
[2018-01-09 20:29] LABS: A TYPE INFLUENZA AG NEGATIVE (NEGATIVE); B INFLUENZA AG NEGATIVE (NEGATIVE)
[2018-01-09 20:31] LABS: ABSOLUTE LYMPHOCYTES# (MANUAL) 1.5 10^3/uL (0.5-4.7); ABSOLUTE MONOCYTES # (MANUAL) 0.6 10^3/uL (0.1-1.4); ABSOLUTE NEUTROPHILS# (MANUAL) 5.9 10^3/uL (1.7-8.2); EOSINOPHILS % (MANUAL) 6 % (0-6); LYMPHOCYTES % (MANUAL) 17 % (13-45); MONOCYTES % (MANUAL) 7 % (3-13); SEGMENTED NEUTROPHILS % (MAN) 66 % (42-78); TOTAL CELLS COUNTED 100
[2018-01-09 20:36] LABS: CREATINE KINASE MB 1.52 ng/mL (<4.55)
[2018-01-09 20:37] LABS: ANISOCYTOSIS 2+; HELMET CELLS 1+; OVALOCYTES 1+; POIKILOCYTOSIS 1+; TEAR DROP CELLS SLIGHT; TOXIC GRANULATION SLIGHT
[2018-01-09 20:38] LABS: PLATELET COMMENT ADEQUATE
[2018-01-09 20:39] LABS: BASOPHILS % (MANUAL) 4 % (0-2); TROPONIN I < 0.012 ng/mL
--- NOTE | 2018-01-09 20:49 | ER Document Report ---
ED Respiratory Problem - General Chief Complaint: Shortness Of Breath Stated Complaint: SHORTNESS OF BREATH Time Seen by Provider: 01/09/18 19:32 Notes: Patient is a 52-year-old female presenting to the emergency department complaining of cough, congestion, shortness of breath for the last 3 days. Patient also complains of a subjective fever. Patient denies nausea, vomiting, diarrhea, abdominal pain, dysuria, chest pain. Patient states she does have a history of COPD and has been taking her albuterol inhaler without a spacer at home. Patient states she is taking it 3 times today with little relief. Patient states last time she was in the emergency room we gave her breathing treatments and steroids and she stated she felt a whole lot better. Past medical history: COPD, hypertension, GERD Medications: Amlodipine, omeprazole, Advair, Zyrtec Allergies: Codeine Patient states she quit smoking cigarettes 5 years ago, denies EtOH use, denies illicit drug use. Patient's primary care provider is Dr. Gonzalez TRAVEL OUTSIDE OF THE [place] IN LAST 30 DAYS: No - Related Data Allergies/Adverse Reactions: aspirin [Aspirin] Allergy (Verified 09/30/17 09:53) GI upset codeine [Codeine] Allergy (Verified 09/30/17 09:53) Hallucinations ibuprofen Allergy (Verified 09/30/17 09:53) GI upset Past Medical History - General Information source: Patient - Social History Smoking Status: Former Smoker Chew tobacco use (# tins/day): No Frequency of alcohol use: Rare Drug Abuse: None Lives with: Family Family History: Reviewed & Not Pertinent Patient has suicidal ideation: No Patient has homicidal ideation: No - Past Medical History Cardiac Medical History: Reports: Hx Hypertension Denies: Hx Coronary Artery Disease, Hx DVT, Hx Heart Attack, Hx Pulmonary Embolism Pulmonary Medical History: Reports: Hx Asthma, Hx COPD Denies: Hx Bronchitis, Hx Pneumonia, Hx Tuberculosis Neurological Medical History: Denies: Hx Cerebrovascular Accident, Hx Seizures Endocrine Medical History: Reports: Hx Hyperthyroidism - New diagnosis and is on methimazole 10mg daily Renal/ Medical History: Denies: Hx Peritoneal Dialysis Malignancy Medical History: Reports: Hx Skin Cancer Musculoskeletal Medical History: Reports Hx Arthritis Past Surgical History: Reports: Other - Skin cancer. Denies: Hx Hysterectomy - Immunizations Hx Diphtheria, Pertussis, Tetanus Vaccination: Yes - as a child Hx Pneumococcal Vaccination: 01/04/13 Review of Systems - Review of Systems Constitutional: See HPI EENT: See HPI Cardiovascular: See HPI Respiratory: See HPI Gastrointestinal: See HPI Genitourinary: See HPI Female Genitourinary: No symptoms reported Musculoskeletal: See HPI Skin: No symptoms reported Hematologic/Lymphatic: No symptoms reported Neurological/Psychological: No symptoms reported Physical Exam - Vital signs Vitals: Temp Pulse Resp BP Pulse Ox 98.2 F 80 20 156/71 H 98 01/09/18 19:28 01/09/18 19:28 01/09/18 19:28 01/09/18 19:28 01/09/18 19:28 - Notes Notes: GENERAL: Alert, interacts well. No acute distress. Raspy voice, patient states that is normal. HEAD: Normocephalic, atraumatic. EYES: Pupils equal, round, and reactive to light. Extraocular movements intact. ENT: Oral mucosa moist, tongue midline. Nares patent, no nasal septal hematoma, TM's intact, non-erythematous, nonbulging. Pharynx within normal limits, no erythema, palatal petechiae, exudate noted. No frontal or ethmoid sinus tenderness. NECK: Full range of motion. Supple. Trachea midline. LUNGS: no rales, or rhonchi. No respiratory distress, speaking in full sentences. Scant end expiratory wheeze heard all gonzalez. HEART: Regular rate and rhythm. No murmur ABDOMEN: Soft, non-tender. Non-distended. Bowel sounds present in all 4 quadrants. EXTREMITIES: Moves all 4 extremities spontaneously. No edema, normal radial and dorsalis pedis pulses bilaterally. No cyanosis. BACK: no cervical, thoracic, lumbar midline tenderness. No saddle anesthesia, normal distal neurovascular exam. NEUROLOGICAL: Alert and oriented x3. Normal speech. cranial nerves II through XII grossly intact. PSYCH: Normal affect, normal mood. SKIN: Warm, dry, normal turgor. No rashes or lesions noted. Course - Re-evaluation Re-evalutation: 01/09/18 22:38 Upon reevaluation patient's lung sounds clear in all gonzalez. Patient states she feels as though she can take a full deep breath. Patient denies chest pain , shortness of breath. Patient wishes for discharge. Patient states she has follow-up with primary care in 2 days. Return precautions discussed. - Vital Signs Vital signs: Temp Pulse Resp BP Pulse Ox 98.2 F 80 18 156/71 H 99 01/09/18 19:28 01/09/18 19:28 01/09/18 22:00 01/09/18 19:28 01/09/18 22:00 - Laboratory Result Diagrams: 01/09/18 19:55 01/09/18 19:55 Laboratory results interpreted by me: 01/09/18 01/09/18 19:55 19:55 Hgb 11.9 L MCV 76 L MCH 24.8 L RDW 18.0 H Basophils % (Manual) 4 H Abs Basophils (Manual) 0.4 H Est GFR (Non-Af Amer) 58 L Alkaline Phosphatase 160 H Discharge - Discharge Clinical Impression: COPD exacerbation Upper respiratory infection Qualifiers: URI type: unspecified viral URI Qualified Code(s): J06.9 - Acute upper respiratory infection, unspecified Condition: Stable Disposition: HOME, SELF-CARE Instructions: Chronic Obstructive Lung Disease ([facility]), Upper Respiratory Illness ([facility]) Prescriptions: Albuterol Sulfate [Proair HFA Inhalation Aerosol 8.5 gm MDI] 2 puff IH Q4H PRN # 1 mdi PRN Reason: Prednisone [Deltasone 20 mg Tablet] 3 tab PO DAILY 5 Days tablet Referrals: SANA GONZALEZ SODA DRY HOUSE OPERATOR [Primary Care Provider] - Follow up as needed
--- NOTE | 2018-01-09 21:07 | RADIOLOGY REPORT (SQ) ---
Portable chest HISTORY: Shortness of breath, chest pain. FINDINGS: The heart is mildly enlarged. No consolidation or pleural effusion. No pulmonary edema or pneumothorax. IMPRESSION: No acute disease.
--- NOTE | 2018-01-09 21:45 | EKG REPORT ---
SEVERITY:- BORDERLINE ECG - SINUS RHYTHM BORDERLINE INFERIOR Q WAVES BORDERLINE T ABNORMALITIES, INFERIOR LEADS : Confirmed by: Bhupinder Carcamo MD 09-Jan-2018 21:45:25
[2018-01-10 14:23] LABS: PATH REVIEW PATHOLOGIST REVIEWED
== END 2018-01-09 22:58 | disposition home or self-care (01) ==
LOC: ER 19:16
DX: J06.9 Acute upper respiratory infection, unspecified (principal); J44.1 Chronic obstructive pulmonary disease with (acute) exacerbation; R05 Cough; R09.81 Nasal congestion; R50.9 Fever, unspecified; I10 Essential (primary) hypertension; Z79.899 Other long term (current) drug therapy; Z87.891 Personal history of nicotine dependence
CPT/HCPCS: 93005; 94640 ×2; 99285; 36415; 82553; 82550; 85025; 80053; 84484; 87804; 71045; 93010; A9270 ×3; J7512; J7620

== ENCOUNTER 2019-05-24 10:17 | Emergency (ER) | payer MEDICARE ==
[2019-05-24] MEDS ORDERED: PREDNISONE 20 MG TABLET PO ONE (11:12)
--- NOTE | 2019-05-24 11:14 | ER Document Report ---
HPI - HPI Time Seen by Provider: 05/24/19 11:08 Notes: CHIEF COMPLAINT: Coughing for 2 weeks HPI: 54-year-old female with COPD history as well as hypertension history presenting to the emergency department complaining of a cough or 2 weeks with shortness of breath. Denies chest pain except with coughing episodes. States she has been using her albuterol at home has not called her PCP for evaluation in the last 2 weeks. Has not had a definitive fever. ROS: See HPI - all other systems were reviewed and are otherwise negative Constitutional: no fever Eyes: no drainage, no blurred vision ENT: no runny nose, no sore throat Cardiovascular: no chest pain Resp: Positive SOB, positive cough GI: no vomiting, no diarrhea, no abdominal pain : no dysuria Integumentary: no rash Allergy: no hives Musculoskeletal: no extremity pain or swelling Neurological: no numbness/tingling, no weakness MEDICATIONS: I agree with the patient medications as charted by the RN. ALLERGIES: I agree with the allergies as charted by the RN. PAST MEDICAL HISTORY/PAST SURGICAL HISTORY: Reviewed and agree as charted by RN. SOCIAL HISTORY: Reviewed and agree as charted by RN. FAMILY HISTORY: No significant familial comorbid conditions directly related to patient complaint EXAM: Reviewed vital signs as charted by RN. CONSTITUTIONAL: Alert and oriented and responds appropriately to questions. Well-appearing; well-nourished, mild distress secondary to cough HEAD: Normocephalic; atraumatic EYES: PERRL; Conjunctivae clear, sclerae non-icteric ENT: normal nose; no rhinorrhea; moist mucous membranes; pharynx without lesions noted, no uvula edema or deviation, no tonsillar hypertrophy, phonation normal NECK: Supple without meningismus; non-tender; no cervical lymphadenopathy, no masses CARD: RRR; no murmurs, no clicks, no rubs, no gallops; symmetric distal pulses RESP: Normal chest excursion without splinting or tachypnea; breath sounds clear and equal bilaterally; no wheezes, no rhonchi, no rales, pulse oximetry 98% on room air not hypoxic. Spastic cough is noted ABD/GI: Normal bowel sounds; non-distended; soft, non-tender, no rebound, no guarding; no palpable organomegaly or masses. BACK: The back appears normal and is non-tender to palpation, there is no CVA tenderness EXT: Normal ROM in all joints; non-tender to palpation; no cyanosis, no effusions, no edema SKIN: Normal color for age and race; warm; dry; good turgor; no acute lesions noted NEURO: Moves all extremities equally; Motor and sensory function intact PSYCH: The patient's mood and manner are appropriate. Grooming and personal hygiene are appropriate. MDM: 54-year-old female presenting for upper respiratory symptoms for 2 weeks. Patient has a spastic cough no active wheezing at this time is been using her albuterol nebulizer at home does have medicine for her nebulizer. Will obtain a chest x-ray to evaluate for infiltrate. I have low suspicion for cardiac origin. This started as an upper respiratory infection with facial congestion as well as chest congestion. She is afebrile here. She is mildly hypertensive but patient has large arms and the cuff was not large when they took her pressure she states she did take her blood pressure medications today. If chest x-ray shows an infiltrate will discuss with the patient regarding management options she is declined a breathing treatment here in the emergency department. If chest x-ray is clear will place patient on Zithromax for atypical bronchitis as well as prednisone - REPRODUCTIVE Reproductive: DENIES: : Past Medical History - Social History Smoking Status: Unknown if Ever Smoked Family History: Reviewed & Not Pertinent - Past Medical History Cardiac Medical History: Reports: Hx Hypertension Denies: Hx Coronary Artery Disease, Hx DVT, Hx Heart Attack, Hx Pulmonary Embolism Pulmonary Medical History: Reports: Hx Asthma, Hx COPD Denies: Hx Bronchitis, Hx Pneumonia, Hx Tuberculosis Neurological Medical History: Denies: Hx Cerebrovascular Accident, Hx Seizures Endocrine Medical History: Reports: Hx Hyperthyroidism - New diagnosis and is on methimazole 10mg daily Renal/ Medical History: Denies: Hx Peritoneal Dialysis Malignancy Medical History: Reports: Hx Skin Cancer Musculoskeletal Medical History: Reports Hx Arthritis Past Surgical History: Reports: Other - Skin cancer. Denies: Hx Hysterectomy - Immunizations Hx Diphtheria, Pertussis, Tetanus Vaccination: Yes - as a child Hx Pneumococcal Vaccination: 01/04/13 Vertical Provider Document - INFECTION CONTROL TRAVEL OUTSIDE OF THE [place] IN LAST 30 DAYS: No Course - Re-evaluation Re-evalutation: 05/24/19 11:56 Chest x-ray does not show evidence of infiltrate will treat as bronchitis with bronchospasm she has a primary care provider for follow-up in 2 days Discharge - Discharge Clinical Impression: Acute bronchitis with bronchospasm Condition: Stable Disposition: HOME, SELF-CARE Instructions: Bronchitis With Bronchospasm (Wheezing) ([facility]) Additional Instructions: Continue to use your albuterol at home every 4 hours. Take the steroids and antibiotics as prescribed. Follow-up within 2 days with your PCP for recheck as discussed Prescriptions: Prednisone [Deltasone 20 mg Tablet] 2 tab PO DAILY 5 Days #10 tablet Azithromycin [Zithromax 250 mg Tablet] 250 mg PO ASDIR PRN #6 tablet PRN Reason: Referrals: SANA LORA, FIBERGLASS TUBE MOLDER [Primary Care Provider] - Follow up as needed
--- NOTE | 2019-05-24 11:44 | RADIOLOGY REPORT (SQ) ---
EXAM DESCRIPTION: CHEST 2 VIEWS COMPLETED DATE/TIME: 05/24/2019 11:32 am REASON FOR STUDY: cough COMPARISON: AP view of the chest from 01/09/2018. EXAM PARAMETERS: NUMBER OF VIEWS: Two views. TECHNIQUE: PA and lateral views of the chest were obtained.. RADIATION DOSE: NA LIMITATIONS: none FINDINGS: LUNGS AND PLEURA: No consolidation, pleural effusion or pneumothorax. MEDIASTINUM AND HILAR STRUCTURES: No mediastinal or hilar contour abnormality. HEART AND VASCULAR STRUCTURES: The cardiac silhouette and pulmonary vasculature are within normal cheng its. BONES: No acute findings. HARDWARE: None in the chest. OTHER: No other finding. IMPRESSION: No acute cardiopulmonary process. TECHNICAL DOCUMENTATION: JOB ID: [id number] 2010 [employer]- All Rights Reserved Reading location - IP/workstation name: [email or web address]
[2019-05-24 12:02] VITALS: BP 143/64
== END 2019-05-24 12:01 | disposition home or self-care (01) ==
LOC: ER 10:17
DX: J20.9 Acute bronchitis, unspecified (principal); J44.0 Chronic obstructive pulmonary disease with (acute) lower respiratory infection; R05 Cough; I10 Essential (primary) hypertension; R06.02 Shortness of breath; Z79.899 Other long term (current) drug therapy
CPT/HCPCS: 99283; 71046; A9270; J7512